=== PATIENT | male | born 1940 | race Caucasian/White ===

== ENCOUNTER 2020-12-07 06:18 | Day surgery (SDC) | payer OTHER ==
[~2020-12-07] VITALS: Ht 185.4 cm; Wt 99.8 kg
--- NOTE | ~2020-12-07 | O ---
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 PROCEDURES: Bilateral lower lid ectropion repair with transconjunctival right lower lid and cheek lift. SURGEON: Edi Reyna MD COLLECTIONS PROFESSIONAL: None. ANESTHESIA: MAC. COMPLICATIONS: None. 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 He presents today for a bilateral lower lid procedure with a right lower lid and cheek procedure in order to reposition his lids and cheeks in such a position that he protects his globe better and reduce his risk for loss of vision, corneal scarring, while improving the quality of his visual function. Informed consent was obtained to include but not limited to the potential risk for loss of vision, bleeding, infection, failure to improve the problem, the potential need for further surgery or treatment. DESCRIPTION OF PROCEDURE: The patient was taken to the operating room where 2% Xylocaine with epinephrine mixed with equal parts 0.75% Marcaine with Wydase was administered transconjunctivally and transcutaneously to each lower lid, lateral canthus and infratemporal fossa. In addition, on the right side, the cheek was then anesthetized. The patient was then prepped and draped in the usual sterile fashion. A Trinidad clamp was then used to clamp the left lateral canthus following which a sharp canthotomy and cantholysis was performed. Hemostasis was re-achieved with pinpoint monopolar cautery. A tarsal strip was then [address] [address] OPERATIVE REPORT Name: ALONDRA SALAS Room #: DEP [facility].#: [id number] Admission: 12/07/20 Attend Phys: Edi Reyna MD Discharge: 12/07/20 Date of : 38 Report #: [id number] prepared laterally removing the lash bearing portion of the redundant lid margin and the redundant tarsal plate. Hemostasis was once more re-achieved. The tarsal strip was then reattached to the internal portion of the lateral orbital tubercle with interrupted 5-0 Prolene sutures. The subcutaneous structures and the skin were then closed with interrupted 6-0 plain gut sutures. Attention was then turned to the right side. The right lateral canthus was then clamped with a Hightower clamp. Sharp canthotomy and cantholysis was made. Hemostasis was re-achieved. A tarsal strip was then prepared laterally removing the lash bearing portion of the redundant lid margin and the redundant tarsal plate. Hemostasis was once more re-achieved. A transconjunctival incision was then made below the inferior border of the tarsal plate across the width of the lid as the lower lid and cheek lift was commenced. The dissection was then carried down into the premalar space sharply. Hemostasis was then re-achieved. The lower lid and cheek tissues were then elevated and resuspended with multiple interrupted mattress 5-0 chromic sutures. This elevated the lower lid and cheek well. Attention was then turned to completion of the ectropion repair. The tarsal strip was reattached to the internal portion of the lateral orbital tubercle with interrupted 5-0 Prolene sutures. The subcutaneous structures and the skin was then closed with interrupted 6-0 plain gut sutures. The wound was then cleaned and dressed with erythromycin ophthalmic ointment. The patient subsequently transported to the recovery area having tolerated the procedure well with no anesthetic or operative complications being noted. By: [id number] Edi Reyna MD /devon
[~2020-12-07 06:18] MED LIST: ASPIRIN325 PO; CARDIZEM CD240 M1 PO; CARVEDILOL12.5 MG PO; CEROVITE SENIO1 EACH PO; CHLORTHALIDONE25 MG PO; CORTISPORIN OTI10 M2 OTIC; COZAAR100 MG PO; FISH OIL 1,001000 M2 PO; GLUCOPHAGE1000 MG PO; INDERAL LA120 MG PO; JANTOVEN5 MG PO; JANUMET 50-1,01 EACH PO; LEVOXYL112 MCG PO; LIPITOR 20 MG T20 M1 PO; LOPRESSOR 50 MG50 M1 PO; LOPRESSOR25 PO; MULTIVITAMINS1 EAC7 PO; PERCOCET PO; PRIMIDONE50 MG PO; ROPINIROLE HCL2 M1 PO; VALSARTAN160 MG PO; ZANTAC 150MG T150 M1 PO; ZOCOR 10 MG TAB10 M1 PO
[2020-12-07 07:30] VITALS: BP 150/71
[2020-12-07 08:13] LABS: INR 1.09; PROTIME 11.8 Seconds (10.5-12.1)
== END 2020-12-07 09:30 | disposition home or self-care (01) ==
LOC: TBA 06:18 → OR 06:18 → TBA 06:19 → OR 09:30
PROVIDERS: Anesthesiology; ATTEND Ophthalmology
DX: H02.105 Unspecified ectropion of left lower eyelid (principal); H02.102 Unspecified ectropion of right lower eyelid; H02.532 Eyelid retraction right lower eyelid; H02.202 Unspecified lagophthalmos right lower eyelid; H18.9 Unspecified disorder of cornea; I10 Essential (primary) hypertension; E11.9 Type 2 diabetes mellitus without complications; I48.91 Unspecified atrial fibrillation; M19.90 Unspecified osteoarthritis, unspecified site; G20 Parkinson's disease; G47.30 Sleep apnea, unspecified; E78.00 Pure hypercholesterolemia, unspecified; Z98.890 Other specified postprocedural states; Z79.899 Other long term (current) drug therapy; Z20.822 Contact with and (suspected) exposure to COVID-19; Z90.49 Acquired absence of other specified parts of digestive tract; Z79.01 Long term (current) use of anticoagulants
CPT/HCPCS: 50010; 50101; 50386; 50398; 51636; 56527; 56531; 62110; 62850; 70005